=== PATIENT | male | born 1975 | race Asian ===

== ENCOUNTER 2025-02-28 09:52 | Outpatient (CLI) | payer OTHER, SELFPAY ==
--- NOTE | ~2025-02-28 | CT_ITS ---
Non-contrast CT scan of the Abdomen and Pelvis Clinical indication: Left groin pain Technique: 2.5 mm axial scans were obtained through the abdomen and pelvis without intravenous or or al contrast. Dose reduction technique was used on this scan by utilizing automated exposure control a nd iterative reconstruction technique. The dose-length product (DLP) was 382.46 mGy-cm. Findings: Images through the lung bases reveal no abnormalities. Horseshoe kidney noted. No renal stone or hydronephrosis. The liver, spleen, pancreas, gallbladder, and adrenals appear normal. There is no aortic aneurysm. There is no evidence of bowel obstruction. Images through the pelvis were performed. There is no evidence of ascites or lymphadenopathy. Urinary bladder unremarkable. No pelvic mass seen. Impression: No acute abnormality. Horseshoe kidney. Reviewed, dictated and finalized at [facility]. Impression: No acute abnormality. Horseshoe kidney.
== END 2025-02-28 09:53 | disposition home or self-care (01) ==
PROVIDERS: PCP Physician Assistant; Visit Provider Physician Assistant
DX: Q63.1 Lobulated, fused and horseshoe kidney (principal); G89.29 Other chronic pain
CPT/HCPCS: 74176